=== PATIENT | female | born 1940 | race Caucasian/White ===

== ENCOUNTER → 2023-11-28 08:21 | Outpatient (REF) | payer MEDICARE, BC, SELFPAY ==
[2023-11-28 09:14] LABS: % Basophils 0.8 % (0-2); % Eosinophils 2.4 % (0-6); % Immature Granulocytes 0.2 % (0-0.5); % Lymphocytes 33.3 % (20.5-51.1); % Neutrophils 53.3 % (42.2-75.2); Absolute Eosinophils 0.1 10^3/uL (0-0.7); Absolute Lymphocytes 1.6 10^3/uL (1.2-3.4); Absolute Monocytes 0.5 10^3/uL (0.1-0.6); Absolute Neutrophils 2.6 10^3/uL (1.4-6.5); Hematocrit 40.6 % (37.0-47.0); Hemoglobin 13.1 g/dL (12.0-16.0); Mean Corp Hgb Conc. 32.3 g/dL (33.0-37.0); Mean Corpuscular Hgb 29.6 pg (27.0-31.0); Mean Corpuscular Volume 91.9 fL (81.0-99.0); Nucleated Red Blood Cells % 0 %; Red Blood Cell Count 4.42 10^6/uL (4.20-5.40); White Blood Cell Count 4.9 10^3/uL (4.8-10.8)
[2023-11-28 09:16] LABS: Urine Albumin Trace (Neg - Trace); Urine Bilirubin Negative (Negative); Urine Character Slightly Cloudy (Clear); Urine Color Yellow; Urine Glucose Negative (Negative); Urine Ketone Negative (Negative); Urine Leukocyte 2+ (Negative); Urine Nitrite Negative (Negative); Urine Occult Blood 1+ (Negative); Urine Specific Gravity 1.015 (<1.030); Urine Urobilinogen Negative (Neg - 1+)
[2023-11-28 09:33] LABS: ALT (SGPT) 42 U/L (0-35); AST (SGOT) 50 U/L (14-36); Albumin 4.2 g/dl (3.5-5.0); Alkaline Phosphatase 61 U/L (38-126); Blood Urea Nitrogen 22 mg/dl (7-17); Calcium 9.1 mg/dl (8.4-10.2); Carbon Dioxide 26 mmol/L (22-30); Chloride 105 mmol/L (98-107); Glucose 101 mg/dl (70-99); HDL Cholesterol 52 mg/dl; LDL Cholesterol, Calculated 23 mg/dl; Potassium 3.8 mmol/L (3.5-5.1); Sodium 140 mmol/L (135-145); Total Bilirubin 0.6 mg/dl (0.2-1.3); Total Cholesterol 91 mg/dl (50-199); Total Protein 6.5 g/dl (6.3-8.2); Triglyceride 83 mg/dl (10-149); Very Low Density Lipoprotein 16 mg/dl (0-30); eGFR > 60.00
[2023-11-28 10:02] LABS: Mean Platelet Volume 11.9 fL (7.4-10.4); Platelet Count 124 10^3/uL (130-400)
[2023-11-28 10:32] LABS: Urine Amorphous Seen; Urine Mucus Moderate; Urine Squamous Cell >30 /LPF (Few); Urine Urothelial Cell 21-25 /LPF (FEW)
[2023-11-28 10:34] LABS: Urine Bacteria Many (Negative)
[2023-11-28 10:36] LABS: Urine White Cell 70-80 /HPF (0-5)
== END ==
LOC: REG 08:21
PROVIDERS: ATTENDING PHYSICIAN Internal Medicine Rheumatology; FAMILY PHYSICIAN Internal Medicine; REFERRING PHYSICIAN Internal Medicine Cardiovascular Disease
DX: M19.071 Primary osteoarthritis, right ankle and foot (principal); I51.9 Heart disease, unspecified; M25.511 Pain in right shoulder; M81.0 Age-related osteoporosis without current pathological fracture; S63.10 Unspecified subluxation and dislocation of thumb; Z51.81 Encounter for therapeutic drug level monitoring; I25.10 Atherosclerotic heart disease of native coronary artery without angina pectoris; E78.5 Hyperlipidemia, unspecified
CPT/HCPCS: 36415; 73630; 80053; 80061; 81003; 81015; 85025

== ENCOUNTER → 2024-02-14 06:40 | Day surgery (SDC) | payer MEDICARE, BC, SELFPAY | LOC: GI 06:40 | PROVIDERS: ATTENDING PHYSICIAN Internal Medicine Gastroenterology | PROC: 0DBK8ZX Excision of Ascending Colon, Via Natural or Artificial Opening Endoscopic, Diagnostic (ICD-10-PCS; 2024-02-14) | PROC: 0DBM8ZX Excision of Descending Colon, Via Natural or Artificial Opening Endoscopic, Diagnostic (ICD-10-PCS; 2024-02-14) | DX: Z12.11 Encounter for screening for malignant neoplasm of colon (principal); Z86.0100 Personal history of colon polyps, unspecified; D12.4 Benign neoplasm of descending colon; D12.2 Benign neoplasm of ascending colon; K57.30 Diverticulosis of large intestine without perforation or abscess without bleeding; K64.8 Other hemorrhoids | CPT/HCPCS: 45380; 88305 ==

== ENCOUNTER → 2024-02-26 13:16 | Outpatient (REF) | payer MEDICARE, BC, SELFPAY | LOC: WDC 13:16 | PROVIDERS: ATTENDING PHYSICIAN Obstetrics & Gynecology; FAMILY PHYSICIAN Internal Medicine | DX: Z12.31 Encounter for screening mammogram for malignant neoplasm of breast (principal) | CPT/HCPCS: 77063; 77067 ==

== ENCOUNTER → 2024-03-13 12:00 | Outpatient (REF) | payer MEDICARE, BC, SELFPAY | LOC: UCDH 12:00 | PROVIDERS: ATTENDING PHYSICIAN Physician Assistant Medical; FAMILY PHYSICIAN Internal Medicine | DX: M25.532 Pain in left wrist (principal) | CPT/HCPCS: 73110 ==

== ENCOUNTER → 2024-05-16 09:15 | Outpatient (REF) | payer OTHER, SELFPAY ==
[2024-05-16 10:59] LABS: % Basophils 0.8 % (0-2); % Eosinophils 1.3 % (0-6); % Lymphocytes 36.9 % (20.5-51.1); Absolute Eosinophils 0.1 10^3/uL (0-0.7); Absolute Lymphocytes 1.4 10^3/uL (1.2-3.4); Absolute Monocytes 0.4 10^3/uL (0.1-0.6); Absolute Neutrophils 1.9 10^3/uL (1.4-6.5); Hemoglobin 12.1 g/dL (12.0-16.0); Mean Corp Hgb Conc. 31.8 g/dL (33.0-37.0); Mean Corpuscular Hgb 28.9 pg (27.0-31.0); Mean Corpuscular Volume 90.7 fL (81.0-99.0); Mean Platelet Volume 12.7 fL (7.4-10.4); Nucleated Red Blood Cells % 0 %; Platelet Count 116 10^3/uL (130-400); Red Blood Cell Count 4.19 10^6/uL (4.20-5.40); Red Cell Dist. Width 14.7 % (11.5-14.5); White Blood Cell Count 3.8 10^3/uL (4.8-10.8)
[2024-05-16 11:13] LABS: ALT (SGPT) 46 U/L (0-35); AST (SGOT) 48 U/L (14-36); Albumin 4.6 g/dl (3.5-5.0); Alkaline Phosphatase 68 U/L (38-126); Blood Urea Nitrogen 18 mg/dl (7-17); Calcium 9.2 mg/dl (8.4-10.2); Carbon Dioxide 28 mmol/L (22-30); Chloride 102 mmol/L (98-107); Glucose 99 mg/dl (70-99); Potassium 3.7 mmol/L (3.5-5.1); Sodium 141 mmol/L (135-145); Total Bilirubin 0.8 mg/dl (0.2-1.3); Total Protein 6.7 g/dl (6.3-8.2); eGFR > 60.00
[2024-05-16 12:04] LABS: Free T4 1.19 ng/dl (0.78-2.19)
[2024-05-16 12:18] LABS: TSH 1.12 uIU/ml (0.47-4.68)
== END ==
LOC: RCS 09:15
PROVIDERS: ATTENDING PHYSICIAN Internal Medicine; FAMILY PHYSICIAN Internal Medicine Cardiovascular Disease
DX: I25.10 Atherosclerotic heart disease of native coronary artery without angina pectoris (principal); I35.1 Nonrheumatic aortic (valve) insufficiency; R63.4 Abnormal weight loss; I48.0 Paroxysmal atrial fibrillation
CPT/HCPCS: 36415; 80053; 84439; 84443; 85025; 93306

== ENCOUNTER → 2024-05-27 06:55 | Outpatient (REF) | payer OTHER, SELFPAY ==
[2024-05-27 09:18] LABS: Blood Urea Nitrogen 23 mg/dl (7-17); Calcium 9.2 mg/dl (8.4-10.2); Carbon Dioxide 29 mmol/L (22-30); Chloride 102 mmol/L (98-107); Glucose 99 mg/dl (70-99); Potassium 3.5 mmol/L (3.5-5.1); Sodium 142 mmol/L (135-145); eGFR > 60.00
[2024-05-27 09:54] LABS: NT-proBNP 820 pg/ml
== END ==
LOC: RAD 06:55
PROVIDERS: ATTENDING PHYSICIAN Internal Medicine Cardiovascular Disease; FAMILY PHYSICIAN Internal Medicine
DX: I71.40 Abdominal aortic aneurysm, without rupture, unspecified (principal)
CPT/HCPCS: 36415; 76770; 80048; 83880

== ENCOUNTER → 2024-06-20 07:54 | Outpatient (REF) | payer OTHER, SELFPAY ==
[2024-06-20 09:32] LABS: HDL Cholesterol 50 mg/dl; LDL Cholesterol, Calculated 15 mg/dl; Total Cholesterol 77 mg/dl (50-199); Triglyceride 60 mg/dl (10-149); Very Low Density Lipoprotein 12 mg/dl (0-30)
== END ==
LOC: REG 07:54
PROVIDERS: ATTENDING PHYSICIAN Internal Medicine Cardiovascular Disease; FAMILY PHYSICIAN Internal Medicine
DX: E78.2 Mixed hyperlipidemia (principal)
CPT/HCPCS: 36415; 80061

== ENCOUNTER 2024-06-28 07:02 | Emergency (ER) | payer OTHER, SELFPAY ==
[2024-06-28] VITALS (13 sets, daily range): BP systolic 92–158; BP diastolic 39–87
--- NOTE | 2024-06-28 08:01 | ED.GENMED ---
History of Present Illness
General
Chief Complaint: Cardiac Symptoms
Source: patient
Time Seen by Provider: 06/28/24 07:32
History of Present Illness
History of Present Illness:
84-year-old female presents to the emergency room complaining of palpitations and rapid heart rate. She has a history of paroxysmal A-fib and was suspicious she was back in it. She also received a alert from her Apple Watch that she may be in
A-fib. She has mild chest pain but no shortness of breath. Patient is not anticoagulated which she has discussed with cardiology.
Phy Exam
Physical Exam
Physical Exam:
General: Awake, Alert, Oriented X3. No acute distress.
Vitals: unremarkable
Head: Atraumatic
Eyes: Pupils equal, EOMI
Throat: Airway intact, no exudates
Neck: Trachea midline
Lungs: Clear and equal b/l
Heart: Tachycardic, irregular rate, no murmurs
Abd: Soft, Nontender, No pulsatile mass
Back: No CVA tenderness to percussion
Neuro: Nonfocal
Skin: Warm, dry, no rash
Extremities: pulses equal b/l, no edema
Course
Orders/Labs/Results
Orders:
Orders
06/28/24 07:05
Electrocardiogram (*1) Urgent
Reason for Study: Atrial Fibrillation
EKG- Treatment ONCE
06/28/24 08:01
Diltiazem 125 mg/125 ml Nss [Cardizem] 125 mg in 125 ml IV NOW
Initial dose in mg/hr, then titrate:: 5
Titrate to keep:: Heart rate 80-100 bpm
Titrate by mg/hr:: 5 mg/hr
Frequency of titrations (minutes):: 15
Maximum dose in mg/hr:: 15
Diltiazem HCl [Cardizem] 10 mg IV NOW STA
06/28/24 09:22
Basic Metabolic Panel Urgent
Complete Blood Count/With Diff Urgent
Troponin I Urgent
06/28/24 09:39
Electrocardiogram (*1) Urgent
Reason for Study: Atrial Fibrillation
EKG- Treatment ONCE
Abnormal Lab Results
06/28/24
09:22
MCHC 32.9 L g/dL
(33.0-37.0)
Plt Count 112 L 10^3/uL
(130-400)
MPV 12.3 H fL
(7.4-10.4)
Monocytes % 9.6 H %
(1.7-9.3)
BUN 20 H mg/dl
(7-17)
Glucose 101 H mg/dl
(70-99)
06/28/24 09:22
06/28/24 09:22
Vital Signs
Initial and Last Documented VS:
Initial Vital Signs
Temp Pulse Resp Pulse Ox
98.2 F 130 16 98
06/28/24 07:13 06/28/24 07:13 06/28/24 07:13 06/28/24 07:13
Last Documented Vital Signs
Temp Pulse Resp BP Pulse Ox
98.2 F 58 14 109/53 96
06/28/24 07:13 06/28/24 11:05 06/28/24 11:05 06/28/24 11:05 06/28/24 11:05
MDM/Problems Addressed
Differential Diagnosis Includes:
Atrial fibrillation with rapid ventricular response, frequent PACs, sinus tachycardia
MDM/Problems Addressed:
Patient presents with sensation her heart rate was irregular rapid. She noted she was in atrial fibrillation on her Apple Watch. Patient cardioverted spontaneously after her rate was controlled with Cardizem. She is maintained sinus rhythm.
Discussed starting Eliquis with the patient. 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
*Pulse Oximetry
Patient hypoxic: no
*EKG
Interpreted by ED Provider?: Yes
Interpretation: abnormal
Heart Rate: 108
Rate: tachycardiac
Rhythm: a-fib
[place]: normal axis
Interval: normal interval
QRS Pattern: normal QRS
Ischemia: non-specific ST changes
*Combination Machine Tool Setter Interpretation
Rate: tachycardiac
Interpretation: abnormal
Heart Rate: 108
Rhythm: a-fib
*Critical Care Note
Total Time (30-74mins, 75-104mins- exclusive of procedures): 32 min
comment:
Critical care statement: A total of 32 minutes of critical care time was provided for this patient. This includes management of unstable vital signs, evaluation of the patient at bedside, reviewing the patient�s pertinent medical records, discussion
with consultants, review of old EKGs and review of pertinent medical records. This time with separate from time utilized to perform the aforementioned documented procedures
ED Attending Note
-
Portions of this chart may have been created with voice recognition software.� Occasional wrong word or��sound alike� substitutions may have occurred due to the inherent limitations of voice recognition software.
Discharge Plan
Departure
Patient Disposition: Home (Routine Discharge)
Date of Disposition: 06/28/24
Time of Disposition: 11:01
Patient with high blood pressure during this ER visit?: No
Condition: Good
Discharge Problem:
Paroxysmal A-fib
Instructions: Atrial fibrillation - Discharge instructions, Chest Pain DCA Follow Up
Prescriptions:
No Action
furosemide [Lasix] 40 mg Tablet
40 mg PO BID
lisinopril 10 mg Tablet
10 mg PO DAILY
metoprolol tartrate 50 mg Tablet
50 mg PO BID
rosuvastatin [Crestor] 20 mg Tablet
10 mg PO QPM
Repatha SureClick 140 mg/mL Pen Injector
140 mg SC Q2W
cetirizine [Zyrtec] 10 mg Tablet
10 mg PO DAILY
cyanocobalamin (vitamin B-12) 1,000 mcg Tablet
1,000 mcg PO NOON
aspirin 81 mg Tablet,Delayed Release (Dr/Ec)
81 mg PO NOON
zinc sulfate 50 mg zinc (220 mg) Tablet
50 mg PO NOON
calcium carbonate [Calcium 600] 600 mg calcium (1,500 mg) Tablet
600 mg PO DAILY
ascorbic acid (vitamin C) [Vitamin C] 500 mg Tablet
500 mg PO NOON
cholecalciferol (vitamin D3) [Vitamin D3] 25 mcg (1,000 unit) Tablet
25 mcg PO NOON
Prolia 60 mg/mL Syringe
60 mg SC [id number]
turmeric 400 mg Capsule
1,200 mg PO BID
Referrals:
Kamilla Barreto MD [Active] -
Len Salazar MD [Family Provider] -
Activity Restrictions/Additional Instructions:
Discuss starting Eliquis with Dr. Barreto.
Interventions
Interventions:
*Risk Screen - Suicide Last Done: 06/28/24 07:13
*General Assessment Last Done: 06/28/24 08:33
*Neglect/Abuse Screening Last Done: 06/28/24 07:13
*ED- Fall Risk Assessment Last Done: 06/28/24 11:13
*ED COVID-19 Vaccine History Last Done: 06/28/24 11:11
*Nursing Disposition Last Done: 06/28/24 11:13
ED- Pulmonary Assessment Last Done: 06/28/24 08:33
ED- Cardiac Assessment Last Done: 06/28/24 08:33
Discharge Date and Time
Discharge Date/Time: 06/28/24 11:14
Print Language: DANISH
[2024-06-28] MEDS: CARDIZEM 10 MG IV (08:29)
[2024-06-28] MEDS: CARDIZEM 125 IV (08:30)
[2024-06-28 09:29] LABS: % Basophils 0.4 % (0-2); % Immature Granulocytes 0.2 % (0-0.5); % Monocytes 9.6 % (1.7-9.3); % Neutrophils 63.8 % (42.2-75.2); Absolute Eosinophils 0.1 10^3/uL (0-0.7); Absolute Lymphocytes 1.3 10^3/uL (1.2-3.4); Absolute Monocytes 0.5 10^3/uL (0.1-0.6); Absolute Neutrophils 3.2 10^3/uL (1.4-6.5); Hematocrit 38.3 % (37.0-47.0); Hemoglobin 12.6 g/dL (12.0-16.0); Mean Corp Hgb Conc. 32.9 g/dL (33.0-37.0); Mean Corpuscular Hgb 29.6 pg (27.0-31.0); Mean Corpuscular Volume 90.1 fL (81.0-99.0); Mean Platelet Volume 12.3 fL (7.4-10.4); Nucleated Red Blood Cells % 0 %; Platelet Count 112 10^3/uL (130-400); Red Blood Cell Count 4.25 10^6/uL (4.20-5.40); Red Cell Dist. Width 14.4 % (11.5-14.5)
[2024-06-28 09:42] LABS: Blood Urea Nitrogen 20 mg/dl (7-17); Calcium 8.7 mg/dl (8.4-10.2); Carbon Dioxide 29 mmol/L (22-30); Chloride 105 mmol/L (98-107); Glucose 101 mg/dl (70-99); Potassium 3.5 mmol/L (3.5-5.1); Sodium 142 mmol/L (135-145); eGFR > 60.00
== END 2024-06-28 11:14 | disposition home or self-care (01) ==
LOC: EMR 07:02
PROVIDERS: EMERGENCY PHYSICIAN Emergency Medicine; FAMILY PHYSICIAN Internal Medicine
DX: I48.0 Paroxysmal atrial fibrillation (principal); R07.9 Chest pain, unspecified
CPT/HCPCS: 96374; 99291; 80048; 84484; 85025; 93005

== ENCOUNTER → 2024-07-03 09:05 | Outpatient (REF) | payer OTHER, SELFPAY ==
[2024-07-03 10:20] LABS: % Basophils 0.4 % (0-2); % Eosinophils 1.5 % (0-6); % Immature Granulocytes 0.2 % (0-0.5); % Lymphocytes 38.1 % (20.5-51.1); % Monocytes 11.8 % (1.7-9.3); Absolute Eosinophils 0.1 10^3/uL (0-0.7); Absolute Lymphocytes 1.8 10^3/uL (1.2-3.4); Absolute Monocytes 0.6 10^3/uL (0.1-0.6); Absolute Neutrophils 2.2 10^3/uL (1.4-6.5); Hematocrit 38.7 % (37.0-47.0); Hemoglobin 12.3 g/dL (12.0-16.0); Mean Corp Hgb Conc. 31.8 g/dL (33.0-37.0); Mean Corpuscular Hgb 28.9 pg (27.0-31.0); Mean Corpuscular Volume 91.1 fL (81.0-99.0); Mean Platelet Volume 12.2 fL (7.4-10.4); Nucleated Red Blood Cells % 0 %; Platelet Count 118 10^3/uL (130-400); Red Blood Cell Count 4.25 10^6/uL (4.20-5.40); Red Cell Dist. Width 14.5 % (11.5-14.5); White Blood Cell Count 4.7 10^3/uL (4.8-10.8)
[2024-07-03 11:02] LABS: ALT (SGPT) 57 U/L (0-35); AST (SGOT) 54 U/L (14-36); Albumin 4.4 g/dl (3.5-5.0); Alkaline Phosphatase 71 U/L (38-126); Blood Urea Nitrogen 17 mg/dl (7-17); Calcium 9.3 mg/dl (8.4-10.2); Carbon Dioxide 30 mmol/L (22-30); Chloride 104 mmol/L (98-107); Glucose 99 mg/dl (70-99); Potassium 3.3 mmol/L (3.5-5.1); Sodium 146 mmol/L (135-145); Total Bilirubin 0.7 mg/dl (0.2-1.3); Total Protein 6.6 g/dl (6.3-8.2); eGFR > 60.00
== END ==
LOC: REG 09:05
PROVIDERS: ATTENDING PHYSICIAN Physician Assistant; FAMILY PHYSICIAN Internal Medicine
DX: M81.0 Age-related osteoporosis without current pathological fracture (principal); Z51.81 Encounter for therapeutic drug level monitoring; D70.9 Neutropenia, unspecified
CPT/HCPCS: 36415; 80053; 85025

== ENCOUNTER 2024-07-15 08:22 | Day surgery (SDC) | payer OTHER, SELFPAY | END 2024-07-15 10:17 | LOC: CATH 08:22 | PROVIDERS: ATTENDING PHYSICIAN Student in an Organized Health Care Education/Training Program; FAMILY PHYSICIAN Internal Medicine; OTHER PHYSICIAN Internal Medicine Cardiovascular Disease | DX: I48.0 Paroxysmal atrial fibrillation (principal); I25.10 Atherosclerotic heart disease of native coronary artery without angina pectoris; I10 Essential (primary) hypertension; E78.2 Mixed hyperlipidemia; E11.9 Type 2 diabetes mellitus without complications; Z95.1 Presence of aortocoronary bypass graft; Z79.01 Long term (current) use of anticoagulants | CPT/HCPCS: 92960; 93005 ==

== ENCOUNTER 2024-08-26 06:56 | Day surgery (SDC) | payer OTHER, SELFPAY | END 2024-08-26 09:06 | disposition home or self-care (01) | LOC: CATH 06:56 | PROVIDERS: ATTENDING PHYSICIAN Student in an Organized Health Care Education/Training Program; FAMILY PHYSICIAN Internal Medicine; OTHER PHYSICIAN Internal Medicine Cardiovascular Disease | DX: I08.3 Combined rheumatic disorders of mitral, aortic and tricuspid valves (principal); I48.0 Paroxysmal atrial fibrillation; I11.0 Hypertensive heart disease with heart failure; I50.9 Heart failure, unspecified; E78.5 Hyperlipidemia, unspecified; I25.10 Atherosclerotic heart disease of native coronary artery without angina pectoris; Z95.1 Presence of aortocoronary bypass graft; Z85.828 Personal history of other malignant neoplasm of skin; Z79.01 Long term (current) use of anticoagulants | CPT/HCPCS: 93312; 93320; 93325 ==

== ENCOUNTER 2024-08-29 05:51 | Day surgery (SDC) | payer OTHER, SELFPAY ==
[2024-08-20 10:57] VITALS: BMI 23.8
[2024-08-20 12:04] LABS: % Basophils 0.7 % (0-2); % Immature Granulocytes 0.2 % (0-0.5); % Lymphocytes 24.3 % (20.5-51.1); % Monocytes 9.4 % (1.7-9.3); % Neutrophils 64.4 % (42.2-75.2); Absolute Eosinophils 0.1 10^3/uL (0-0.7); Absolute Lymphocytes 1.5 10^3/uL (1.2-3.4); Absolute Monocytes 0.6 10^3/uL (0.1-0.6); Absolute Neutrophils 3.9 10^3/uL (1.4-6.5); Hematocrit 34.4 % (37.0-47.0); Hemoglobin 10.8 g/dL (12.0-16.0); Mean Corp Hgb Conc. 31.4 g/dL (33.0-37.0); Mean Corpuscular Hgb 28.7 pg (27.0-31.0); Mean Corpuscular Volume 91.5 fL (81.0-99.0); Mean Platelet Volume 11.7 fL (7.4-10.4); Nucleated Red Blood Cells % 0 %; Platelet Count 146 10^3/uL (130-400); Red Blood Cell Count 3.76 10^6/uL (4.20-5.40); Red Cell Dist. Width 16.3 % (11.5-14.5); White Blood Cell Count 6.1 10^3/uL (4.8-10.8)
[2024-08-20 12:13] LABS: ALT (SGPT) 50 U/L (0-35); AST (SGOT) 43 U/L (14-36); Albumin 3.8 g/dl (3.5-5.0); Alkaline Phosphatase 78 U/L (38-126); Blood Urea Nitrogen 19 mg/dl (7-17); Calcium 8.1 mg/dl (8.4-10.2); Carbon Dioxide 31 mmol/L (22-30); Chloride 111 mmol/L (98-107); Estimated Creatinine Clearance 36 ml/min; Glucose 106 mg/dl (70-99); INR 1.28; PT 16.2 Sec (11.4-14.6); Potassium 3.6 mmol/L (3.5-5.1); Sodium 146 mmol/L (135-145); Total Bilirubin 0.8 mg/dl (0.2-1.3); Total Protein 6.2 g/dl (6.3-8.2); eGFR > 60.00
[2024-08-29] VITALS (13 sets, daily range): BP systolic 103–159; BP diastolic 43–78; BMI 22.8
[2024-08-29] MEDS: TYLENOL 1000 MG PO (07:07)
--- NOTE | 2024-08-29 07:54 | ITS.CL.ABL ---
Jazz Musician - Ablation
Ablation
Procedure Report:
ELECTROPHYSIOLOGIC STUDY AND POSSIBLE ABLATION
DATE: 08/29/24
Primary Care Provider: Len Salazar
Primary Yarn Winder: Dr Kamilla Barreto
INDICATION:
Symptomatic Atrial Fibrillation.
Paroxysmal
HISTORY: See H and P.
Symptomatic AF, poorly controlled with attempted medical therapy.
She has been referred from Dr. Kamilla Barreto regarding recurrent symptomatic atrial fibrillation.
She is highly symptomatic, most recently was seen at the emergency department at [facility] on June 28, 2024 where she spontaneously converted back to sinus rhythm.� She recurred shortly thereafter on July 10, 2024.� Highly symptomatic.� Symptoms
include fatigue as well as worsening dizziness. She was seen in the office setting July 11, 2024 where amiodarone was initiated and cardioversion was scheduled for July 15, 2024, successfully restoring sinus rhythm.� At this office visit lisinopril
was reduced from 10 mg daily to 2.5 mg daily given mild hypotension in the presence of atrial fibrillation. In addition metoprolol to tartrate was increased to 75 twice daily
Her cardiovascular history is also complicated by HFpEF (heart failure with improved ejection fraction as previously had reduced ejection fraction).
Her most recent echocardiogram is from May 16, 2024 showing LVEF of 60%.
Given that she is highly symptomatic and that she strongly prefers to avoid ongoing amiodarone therapy, she presents today for EP study and ablation.
Medical history also includes coronary artery disease with prior myocardial infarction and prior coronary artery bypass grafting surgery.
HAS-BLED: 2
Age
Abnormal Liver Function
CHADSVASc: 5
HFimpEF NYHA Class 2, LVEF 60%
Age
Vascular Dz: prior CA
F Gender
PRESENTING RHYTHM: SR
HISTORY: See H and P.
Symptomatic AF, poorly controlled with attempted medical therapy.
ANTIARRHYTHMIC DRUG: amiodarone
ANTICOAGULATION: Apixaban 5 mg twice daily
'TIME-OUT': called and confirmed.
SEDATION/ANESTHESIA: provided via the anesthesia department using general anesthesia.
PROCEDURE:
Ultrasound Guidance with real-time visualization of needle insertion and vessel patency performed by nd for femoral venous Vascular Access.
Under real-time US guidance, the needle was advanced with negative pressure into the vein. The needle was seen entering the vessel lumen with a good return of dark red flow, the syringe was removed, non-pulsatile, dark red blood low was noted and
the wire was passed without difficulty, then the needle was removed. US confirmed the wire was in the vein, not going into an artery,
Images were taken and saved for the patient's permanent record. Imaging findings typical femoral venous anatomy. Direct visualization of needle puncture into the femoral vein was observed and recorded.
A decapolar CS catheter was placed within the CS for mapping and pacing.
The intracardiac ultrasound catheter was positioned in the RA for continuous intracardiac ultrasound imaging.
Heparin bolus and infusion to target ACT at 300 -350 seconds was administered. Transseptal puncture was performed. This entailed advancing a sheath with dilator into the superior vena cava and withdrawing both (monitoring intracardiac ultrasound,
fluoroscopy and tip pressure) with the tip oriented toward the atrial septum. The fossa ovalis was engaged (indicated by sudden displacement of the sheath tip as well as tenting of the fossa seen on intracardiac ultrasound).
Transseptal puncture was performed. Left atrial catheter position was confirmed by echocardiographic imaging, pressure monitoring (LA mean pressure 18 mm Hg) and fluoroscopy. The sheath was advanced over the dilator and positioned in the left
atrium.
The [employer] multipolar mapping/ablation Sphere-9 catheter was positioned through the transseptal sheath for high density mapping.
Geometry and voltage mapping was performed using the [employer] mapping system for three-dimensional electroanatomical mapping.
Catheter positioning was guided and confirmed using both I.C.E. and fluoroscopy.
Mapping demonstrates marked fractionation and patches of low voltage throughout the majority of the left atrium.
Ablation strategy included PVI as well as mapping and ablation of extra PV contributors to atrial fibrillation:
Pulmonary venous isolation was performed by delivering pulsed electric field energy at the ostia of the left superior and left inferior pulmonary veins as well as the right superior and right inferior pulmonary veins resulting in electrical
isolation of the pulmonary veins.
Additional energy applications/additional ablation sets targeted extra PV contributors to atrial fibrillation.
Targets were identified with electroanatomical voltage mapping finding areas of low voltage and complex fractionated electrograms. These areas can be sites for the formation of rotors which can drive and maintain atrial fibrillation. These areas are
known to be significant contributors to initiation and perpetuation of atrial fibrillation.
Targets for additional PFA ablation included:
LA posterior wall
After ablation of the posterior wall, target remained at the anterior roof and the inferior/ floor of the LA
LA anterior inferior floor line as well as an area of marked fractionation between the inferior posterior/floor of the left atrium and the posterior mitral valve annulus where there were areas of near continuous activation
A second tachycardia is identified. During mapping sinus rhythm changed to an atrial tachycardia. Tachycardia cycle length 380 ms with some oscillation.
High density electroanatomical mapping via the [employer] system identified likely atrial tachycardia arising just anterior to the right superior pulmonary vein.
Ablation at this area terminated the atrial tachycardia.
At the completion of ablation at the PVs, the targeted extra PV sites and the focal LA tachycardia, post ablation mapping finds entrance and exit block at the pulmonary veins and at the posterior wall of the left atrium and floor of the left atrium.
Programmed electrostimulation including burst atrial pacing as well as delivery of atrial decremental extrastimuli down to atrial ERP failed to induce any sustained arrhythmias.
I.C.E. :
Pre-Ablation Post-Ablation
LVEF: 55 % 55 %
WMA: none none
Pericardial effusion: none none
COMPLICATIONS:
None
SUMMARY:
- Mapping and ablation to isolate the PVs resulting in electrical isolation of the pulmonary veins
- Additional AF ablation sets X 2 after PVI (LA posterior wall, Inf/floor of the LA posterior wall) resulting in elimination of the targeted extra PV contributors to atrial fibrillation (Post wall, Inf LA floor)
- Mapping and ablation of second tachycardia (Focal LA tachycardia) terminating the AT and rendering it noninducible with programmed electrical stimulation.
- 3-D Electroanatomical Mapping
- Intracardiac Ultrasound
- Ultrasound guidance for vascular access
Post ablation, I discussed today's findings and results with the patient's daughter, Chiara.
RECOMMENDATIONS:
- Observe in monitored bed.
- Maintain oral anticoagulation.
- Discontinue amiodarone
- Office visit with me is scheduled for January 03, 2025.
- Continue cardiovascular care with Dr Kamilla Barreto
Copy to:
Len Salazar
Dr Kamilla Barreto
[2024-08-29 09:07] LABS: ACT-LR - POC 294 Seconds (116-155)
[2024-08-29 09:22] LABS: ACT-LR - POC 340 Seconds (116-155)
[2024-08-29 09:43] LABS: ACT-LR - POC 380 Seconds (116-155)
[2024-08-29] MEDS: ANESTHETIC LOZENGE 1 LOZENGE PO (10:40)
--- NOTE | 2024-08-29 14:39 | W.PN.UPDATE ---
Update Note
Progress Note Update
84 yo WF s/p PVI (same day). She denies cp, sob, pily diet, voiding, amb w/o dizziness, R fem site c/d/i no HT, soft, EKG SR with new RBBB and mild STD which resolved prior to d/c. She will resume Eliquis tonight. Activity restrictions reviewed. She
will f/u Dr. Gomes in 3 mo. She is for d/c home after 230pm.
== END 2024-08-29 14:30 | disposition home or self-care (01) ==
LOC: CATH 05:51
PROVIDERS: ATTENDING PHYSICIAN Internal Medicine Cardiovascular Disease; FAMILY PHYSICIAN Internal Medicine; OTHER PHYSICIAN Internal Medicine Cardiovascular Disease
DX: I48.0 Paroxysmal atrial fibrillation (principal); E04.2 Nontoxic multinodular goiter; E78.5 Hyperlipidemia, unspecified; E83.51 Hypocalcemia; I11.0 Hypertensive heart disease with heart failure; I25.10 Atherosclerotic heart disease of native coronary artery without angina pectoris; I25.2 Old myocardial infarction; I25.5 Ischemic cardiomyopathy; I45.10 Unspecified right bundle-branch block; I49.1 Atrial premature depolarization; I50.9 Heart failure, unspecified; J45.909 Unspecified asthma, uncomplicated; M19.90 Unspecified osteoarthritis, unspecified site; M85.80 Other specified disorders of bone density and structure, unspecified site; Z79.01 Long term (current) use of anticoagulants; Z79.899 Other long term (current) drug therapy; Z85.828 Personal history of other malignant neoplasm of skin; Z86.0100 Personal history of colon polyps, unspecified; Z87.19 Personal history of other diseases of the digestive system; Z95.1 Presence of aortocoronary bypass graft
CPT/HCPCS: C1894; C1733; C1769; C1766; C1730; C1892; 36415; 75572; 80053; 83735; 85025; 85347; 85610; 86850; 86900; 86901; 93005; 93655; 93656; 93657; Q9967

== ENCOUNTER 2024-09-03 14:06 | Emergency (ER) | payer OTHER, SELFPAY ==
[2024-09-03 14:07] VITALS: BP 165/64
--- NOTE | 2024-09-03 15:20 | EDRN ---
Dr. Patten in room w/ pt at this time.
--- NOTE | 2024-09-03 15:54 | EDRN ---
Dr. Patten in room w/pt at this time.
--- NOTE | 2024-09-03 16:08 | ED.GENMED ---
History of Present Illness
General
Chief Complaint: Fall
Source: patient
Exam Limitations: none
Time Seen by Provider: 09/03/24 15:25
Nursing documentation reviewed up to this point in time: agreed with
History of Present Illness
History of Present Illness:
84-year-old female with a past medical history of hypertension, hyperlipidemia, CAD, atrial fibrillation on Eliquis who presents to the emergency department for evaluation after a fall. Patient tripped on a step in her house and fell forward. She
struck the left side of her head. Did not lose consciousness. Sustained minor abrasion and contusion to the left forehead. She landed on her left knee initially had some soreness but was able to stand up and weight-bear and denies any knee pain
at present. She denies any other injuries including specifically denying neck pain, back pain, rib pain. Of note patient had recent cardiac ablation with Dr. Barreto on 08/29/2024.
Review of Systems
Review of Systems
All Other Systems: ROS reviewed and negative except as documented in HPI and ROS
Cardiac: Denies chest pain
ABD/GI: Denies abdominal pain or nausea
Musculoskeletal: Denies joint pain, neck pain or back pain
Neurological: Denies headache
Phy Exam
Physical Exam
Physical Exam:
General: Awake, alert, oriented x3; no acute distress
Head: Normocephalic, contusion and minor abrasion to the left forehead
Eyes: Conjunctiva normal, pupils equal round reactive to light bilaterally
Throat: Airway intact, handling secretions, tongue atraumatic
Neck: Trachea midline, no cervical spine tenderness, full range of motion in the cervical spine without pain
Back: No signs of trauma the back or flank and no tenderness in the thoracic or lumbar spine
Lungs: Breathing comfortably no distress
Heart: Regular rate
Abd: Soft, non distended, nontender
Neuro: No gross deficits
Skin: Old bruises on the arms from prior IVs; minor abrasion to the left forehead
Extremities: Bilateral lower extremity edema chronic; she has no bruising or swelling in the left knee, full range of motion of the left knee without pain
Scores
Heart Failure Risk
Heart Failure Risk Score: Not Applicable
Heart Score for Chest Pain Patients
STEMI patient?: Not applicable
Withdrawal Assessment of Alcohol
Withdrawal Assessment Completed?: Not applicable
Course
Orders/Labs/Results
Orders:
Orders
09/03/24 14:11
CT Head W/o Iv Contrast Urgent
Comment:
Reason For Exam: head strike on thinners
09/03/24 15:26
Tetanus/Diphth/Acelpertussis [Adacel] 0.5 ml IM .ONCE ONE
Vital Signs
Initial and Last Documented VS:
Initial Vital Signs
Temp Pulse Resp BP Pulse Ox
36.5 C 68 20 165/64 98
09/03/24 14:07 09/03/24 14:07 09/03/24 14:07 09/03/24 14:07 09/03/24 14:07
Last Documented Vital Signs
Temp Pulse Resp BP Pulse Ox
36.5 C 68 20 165/64 98
09/03/24 14:07 09/03/24 14:07 09/03/24 14:07 09/03/24 14:07 09/03/24 14:07
MDM/Problems Addressed
Differential Diagnosis Includes:
Traumatic head injury: Subdural, subarachnoid, concussion, forehead contusion
MDM/Problems Addressed:
84-year-old female who is on Eliquis presents after a trip and fall with head strike. She also landed on her left knee although after some initial soreness she no longer complains of any pain in the knee. Hypertensive otherwise normal vitals.
Physical exam as above. She had a CT head which shows no acute abnormalities. Her exam of her left knee is benign. She has no neck pain, full range of motion in the cervical spine�no indication for emergent cervical spine imaging. Stable for
discharge to follow-up with PCP for blood pressure recheck.
Chronic conditions affecting care:
A-fib on Eliquis complicates fall
Acute Exacerbation and/or Progression of Chronic Illness:
Acutely hypertensive without signs or symptoms of hypertensive crisis�no indication for emergent antihypertensives
Acute Exacerbation and/or Progression of Chronic Illness: HTN
*Radiology
Radiology exam reviewed: radiology read reviewed
*Pulse Oximetry
Patient hypoxic: no
*Critical Care Note
Total Time (30-74mins, 75-104mins- exclusive of procedures): Not Applicable
Data Reviewed
Source: patient, records and family (Daughter)
Further Testing Considered But Not Given:
Considered x-ray of the left knee, considered CT of the cervical spine
ED Attending Note
-
Portions of this chart may have been created with voice recognition software.� Occasional wrong word or��sound alike� substitutions may have occurred due to the inherent limitations of voice recognition software.
Discharge Plan
Departure
Patient Disposition: Home (Routine Discharge)
Date of Disposition: 09/03/24
Time of Disposition: 16:07
Patient with high blood pressure during this ER visit?: Yes
Discharge Problem:
Fall, Forehead contusion
Instructions: Preventing falls in adults
Prescriptions:
No Action
furosemide [Lasix] 40 mg Tablet
40 mg PO BID
metoprolol tartrate 50 mg Tablet
75 mg PO BID
Repatha SureClick 140 mg/mL Pen Injector
140 mg SC Q2W
Rx Instructions:
and mo
cetirizine [Zyrtec] 10 mg Tablet
10 mg PO DAILY
cyanocobalamin (vitamin B-12) 1,000 mcg Tablet
1,000 mcg PO DAILY
zinc sulfate 50 mg zinc (220 mg) Tablet
50 mg PO QPM
ascorbic acid (vitamin C) [Vitamin C] 500 mg Tablet
1,000 mg PO DAILY
Prolia 60 mg/mL Syringe
60 mg SC [id number]
turmeric 400 mg Capsule
1,500 mg PO BID
multivitamin Tablet
1 tab PO DAILY
guar gum Packet
1 tbsp PO DAILY
Eliquis 2.5 mg Tablet
2.5 mg PO BID
Probiotic 100 billion cell Capsule
1 cap PO DAILY
lisinopril 2.5 mg Tablet
2.5 mg PO DAILY
rosuvastatin [Crestor] 10 mg Tablet
10 mg PO DAILY
cholecalciferol (vitamin D3) 125 mcg (5,000 unit) Tablet
125 mcg PO DAILY
calcium carbonate 650 mg calcium (1,625 mg) Tablet
650 mg PO DAILY
Referrals:
Len Salazar MD [Family Provider] - Follow up in 1 week (For BP check)
Activity Restrictions/Additional Instructions:
Thank you for visiting the Emergency Department at [facility].
1. Please schedule a follow up appointment as directed. Call first thing tomorrow morning to make an appointment.
2. If indicated, please take your medications as instructed and indicated on discharge paperwork.
3. If any of your symptoms do not improve, or persist, or become more severe within 6-12 hours, please return to the emergency department for further care.
4. Please return to the emergency department if you develop a headache, neck pain/stiffness, fever greater than 100.4F, chest pain, shortness of breath, persistent nausea, vomiting, slurred speech, difficulty walking, numbness/tingling, weakness,
signs of infection or any other symptoms that are worrisome to you.
Please call [phone] if you have any questions.
Interventions
Interventions:
*Risk Screen - Suicide Last Done: 09/03/24 14:07
*General Assessment Last Done: 09/03/24 14:07
*Neglect/Abuse Screening Last Done: 09/03/24 14:07
Discharge Date and Time
Print Language: SERBIAN
[2024-09-03 16:11] VITALS: BMI 25.4
[2024-09-03 16:21] VITALS: BP 167/67
== END 2024-09-03 16:30 | disposition home or self-care (01) ==
LOC: EMR 14:06
PROVIDERS: EMERGENCY PHYSICIAN Emergency Medicine; FAMILY PHYSICIAN Internal Medicine
DX: S00.83XA Contusion of other part of head, initial encounter (principal); S00.81XA Abrasion of other part of head, initial encounter; W01.0XXA Fall on same level from slipping, tripping and stumbling without subsequent striking against object, initial encounter; Y92.009 Unspecified place in unspecified non-institutional (private) residence as the place of occurrence of the external cause; I10 Essential (primary) hypertension; E78.00 Pure hypercholesterolemia, unspecified; I25.10 Atherosclerotic heart disease of native coronary artery without angina pectoris; I48.91 Unspecified atrial fibrillation; Z79.01 Long term (current) use of anticoagulants
CPT/HCPCS: 99284; 70450; 90471; 90715

== ENCOUNTER → 2024-10-14 09:16 | Outpatient (REF) | payer OTHER, SELFPAY ==
[2024-10-14 10:50] LABS: Hematocrit 36.8 % (37.0-47.0); Hemoglobin 11.5 g/dL (12.0-16.0); Mean Corp Hgb Conc. 31.3 g/dL (33.0-37.0); Mean Corpuscular Volume 92.0 fL (81.0-99.0); Nucleated Red Blood Cells % 0 %; Platelet Count 163 10^3/uL (130-400); Red Cell Dist. Width 15.7 % (11.5-14.5)
[2024-10-14 11:40] LABS: ALT (SGPT) 53 U/L (0-35); AST (SGOT) 45 U/L (14-36); Albumin 4.4 g/dl (3.5-5.0); Alkaline Phosphatase 69 U/L (38-126); Blood Urea Nitrogen 28 mg/dl (7-17); Calcium 9.5 mg/dl (8.4-10.2); Carbon Dioxide 30 mmol/L (22-30); Chloride 107 mmol/L (98-107); Glucose 99 mg/dl (70-99); Potassium 4.7 mmol/L (3.5-5.1); Sodium 143 mmol/L (135-145); Total Protein 7.0 g/dl (6.3-8.2); eGFR > 60.00
== END ==
LOC: REG 09:16
PROVIDERS: ATTENDING PHYSICIAN Internal Medicine; OTHER PHYSICIAN Internal Medicine Cardiovascular Disease
DX: I48.0 Paroxysmal atrial fibrillation (principal); D64.9 Anemia, unspecified; E83.51 Hypocalcemia
CPT/HCPCS: 36415; 80053; 85025

== ENCOUNTER 2024-10-26 08:35 | Inpatient (IN) | payer OTHER, SELFPAY ==
[2024-10-25] VITALS (15 sets, daily range): BP systolic 88–115; BP diastolic 40–78; BMI 20.8; BMI 22.8
[2024-10-25 15:13] LABS: Hematocrit 37.9 % (37.0-47.0); Hemoglobin 12.9 g/dL (12.0-16.0); Mean Corp Hgb Conc. 34.0 g/dL (33.0-37.0); Mean Corpuscular Volume 84.4 fL (81.0-99.0); Platelet Count 104 10^3/uL (130-400); Red Cell Dist. Width 15.4 % (11.5-14.5)
[2024-10-25 15:16] LABS: ALT (SGPT) 33 U/L (0-35); AST (SGOT) 35 U/L (14-36); Albumin 4.0 g/dl (3.5-5.0); Alkaline Phosphatase 61 U/L (38-126); Blood Urea Nitrogen 50 mg/dl (7-17); Calcium 8.2 mg/dl (8.4-10.2); Carbon Dioxide 24 mmol/L (22-30); Chloride 98 mmol/L (98-107); Glucose 134 mg/dl (70-99); Lipase 231 U/L (23-300); Potassium 3.8 mmol/L (3.5-5.1); Sodium 131 mmol/L (135-145); Total Protein 6.9 g/dl (6.3-8.2); eGFR 31.41
--- NOTE | 2024-10-25 17:07 | ED.GENMED ---
History of Present Illness
General
Chief Complaint: Abdominal Symptoms
Source: patient
Exam Limitations: none
Time Seen by Provider: 10/25/24 16:50
History of Present Illness
History of Present Illness:
84-year-old female notes that she has been sick with some type of illness since 4 days ago. She started with mild abdominal pain and vomited twice. This was followed by softer bowel movements but this morning she had loose watery stools. She saw
her family doctor today and was found to have low blood pressure in the office and sent here for hydration. Currently she states the loose stools have resolved. She denies abdominal pain. No fever. She just feels fatigued. She has a history of
lymphedema, open heart surgery, but no history of CHF.
Phy Exam
Physical Exam
Physical Exam:
General: Well-appearing female no acute respiratory distress
HEENT: Normocephalic atraumatic
Heart: Regular rate and rhythm
Lungs: Clear no wheeze
Abdomen: Soft nontender nondistended no guarding or rebound
Extremities: No cyanosis
Course
Orders/Labs/Results
Orders:
Orders
10/25/24 14:50
Complete Blood Count/No Diff Urgent
Comprehensive Metabolic Panel Urgent
Lipase Urgent
10/25/24 17:06
0.9% Sodium Chloride 1000 ml [Nss] 1,000 ml IV BOLUS
10/25/24 19:40
Bladder Scan- Treatment ONCE
0.9% Sodium Chloride 1000 ml [Nss] 1,000 ml IV BOLUS
Abnormal Lab Results
10/25/24
14:50
RDW 15.4 H %
(11.5-14.5)
Plt Count 104 L 10^3/uL
(130-400)
MPV 11.1 H fL
(7.4-10.4)
Sodium 131 L mmol/L
(135-145)
BUN 50 H mg/dl
(7-17)
Creatinine 1.6 H mg/dL
(0.6-1.0)
Glucose 134 H mg/dl
(70-99)
Calcium 8.2 L mg/dl
(8.4-10.2)
10/25/24 14:50
10/25/24 14:50
Vital Signs
Initial and Last Documented VS:
Initial Vital Signs
Temp Pulse Resp BP Pulse Ox
99.2 F 84 16 113/57 97
10/25/24 14:35 10/25/24 14:35 10/25/24 14:35 10/25/24 14:35 10/25/24 14:35
Last Documented Vital Signs
Temp Pulse Resp BP Pulse Ox
99.2 F 89 15 98/47 97
10/25/24 14:35 10/25/24 17:38 10/25/24 17:38 10/25/24 19:30 10/25/24 17:38
MDM/Problems Addressed
Differential Diagnosis Includes:
Patient now with benign abdominal exam. She was normotensive at triage but was hypotensive at the family office. SPECT volume depletion. Creatinine today is bumped at 1.6 with a BUN of 50. I also suspect could be prerenal. Will hydrate and
recheck patient.
*Pulse Oximetry
SaO2: 97
Oxygen Mode of Delivery: Room air
Patient hypoxic: no
*Critical Care Note
Total Time (30-74mins, 75-104mins- exclusive of procedures): Not Applicable
Update Note
Update Note:
Noted with creatinine of 1.6 today which is doubled at her baseline. Blood pressure remains soft with systolic in the 80s and 90s. Will keep in hospital for acute kidney injury in the setting of hypotension likely dehydration
ED Attending Note
-
Portions of this chart may have been created with voice recognition software.� Occasional wrong word or��sound alike� substitutions may have occurred due to the inherent limitations of voice recognition software.
Discharge Plan
Departure
Patient Disposition: Home (Routine Discharge)
Date of Disposition: 10/25/24
Time of Disposition: 19:42
Patient with high blood pressure during this ER visit?: No
Discharge Problem:
AGNIESZKA (acute kidney injury), Dehydration
Prescriptions:
No Action
furosemide [Lasix] 40 mg Tablet
40 mg PO BID
metoprolol tartrate 50 mg Tablet
75 mg PO BID
Repatha SureClick 140 mg/mL Pen Injector
140 mg SC Q2W
Rx Instructions:
and
cetirizine [Zyrtec] 10 mg Tablet
10 mg PO DAILY
cyanocobalamin (vitamin B-12) 1,000 mcg Tablet
1,000 mcg PO DAILY
zinc sulfate 50 mg zinc (220 mg) Tablet
50 mg PO QPM
ascorbic acid (vitamin C) [Vitamin C] 500 mg Tablet
1,000 mg PO DAILY
Prolia 60 mg/mL Syringe
60 mg SC [id number]
turmeric 400 mg Capsule
1,500 mg PO BID
multivitamin Tablet
1 tab PO DAILY
guar gum Packet
1 tbsp PO DAILY
Eliquis 2.5 mg Tablet
2.5 mg PO BID
Probiotic 100 billion cell Capsule
1 cap PO DAILY
lisinopril 2.5 mg Tablet
2.5 mg PO DAILY
rosuvastatin [Crestor] 10 mg Tablet
10 mg PO DAILY
cholecalciferol (vitamin D3) 125 mcg (5,000 unit) Tablet
125 mcg PO DAILY
calcium carbonate 650 mg calcium (1,625 mg) Tablet
650 mg PO DAILY
Referrals:
Len Salazar MD [Family Provider, Internal Medicine]
Interventions
Interventions:
*Risk Screen - Suicide Last Done: 10/25/24 14:35
*General Assessment Last Done: 10/25/24 14:35
*Neglect/Abuse Screening Last Done: 10/25/24 14:35
*ED- Fall Risk Assessment Last Done: 10/25/24 17:39
*ED COVID-19 Vaccine History Last Done: 10/25/24 17:39
BW-Oxpfrp-Zqryztpzoq Assessment Last Done: 10/25/24 17:42
Discharge Date and Time
Print Language: ARABIC
[2024-10-25] MEDS: NSS 1000 IV ×2 (17:36→21:00)
--- NOTE | 2024-10-25 20:42 | HPS.HSE ---
Family Physician
-
Family Physician: Len Salazar
Chief Complaint
-
Nausea vomiting diarrhea
History of Present Illness
This is a 84-year-old with past medical history significant for CAD status post CABG, CHF with preserved EF, history of atrial fibrillation, hypertension and hyperlipidemia who presents to the emergency department after being found to have low blood
pressure at the doctor's office today.
Patient reported that she has been having some abdominal illness for the last 4 days. He started with mild abdominal pain and vomiting x 2. She had soft stools but not diarrhea initially. She had decreased p.o. intake and continue to take
diuretic. She says she is continue to urinate. She has not had any further vomiting. She says abdominal pain had resolved. This a.m. she arose and had watery stools x 1. She denies any melena or hematochezia. She denies any cough or shortness
of breath. She has no increased lower extremity edema weight gain. She is denying any chest pain palpitations. She has not been feeling dizzy or lightheaded. She has no known sick contacts and denies any recent travels.
On arrival in the emergency department she was afebrile with a temp of 99, blood pressure was 115/50 with a pulse of 89, she was satting at 7% on room air.
CBC notable for a thrombocytopenia with a platelet count of 104 but otherwise unremarkable.
Electrolytes notable for sodium of 131, BUN was elevated at 50 and creatinine is doubled to 1.6 from baseline of 0.8. Glucose was normal.
Medical History
Past Medical History
Past Medical History: Reports Other
Additional Past Medical History:
Hypertension
Venous insufficiency
Hyperlipidemia
Diabetes not a lot going to
Reactive airways disease
Basal cell cancer
Status post thyroid irradiation on the
Atrial fibrillation postoperatively
CAD status post DC
Will show arthritis
Past Surgical History: Reports Other
Additional Past Surgical History:
CABG x 3, 08/2018
Social History
Tobacco: Non-smoker
Alcohol: None
Drug: None
Employment: Not Employed
Family History
Family History: Not pertinent
Allergies / Home Medications
Allergies reflects when Allergies were last updated in [facility].
Home Medications with original date entered in [facility]
Allergy/Medication List:
Allergies
Allergy/AdvReac Type Severity Reaction Status Date / Time
No Known Allergies Allergy Verified 10/25/24 14:39
Home Medications
ascorbic acid (vitamin C) 500 mg tablet (Vitamin C) 1,000 mg PO DAILY 06/28/24
cetirizine 10 mg tablet (Zyrtec) 10 mg PO DAILY 06/28/24
cyanocobalamin (vitamin B-12) 1,000 mcg tablet 1,000 mcg PO DAILY 06/28/24
denosumab 60 mg/mL subcutaneous syringe (Prolia) 60 mg SC [id number] 06/28/24
evolocumab 140 mg/mL subcutaneous pen injector (Repatha SureClick) 140 mg SC Q2W 06/28/24
furosemide 40 mg tablet (Lasix) 40 mg PO Daily 06/28/24
metoprolol tartrate 50 mg tablet 75 mg PO BID 06/28/24
turmeric 400 mg capsule 1,500 mg PO BID 06/28/24
zinc sulfate 50 mg zinc (220 mg) tablet 50 mg PO QPM 06/28/24
Lactobacillus 40-Bifidobact 3-S.thermophilus 100 billion cell capsule (Probiotic) 1 cap PO DAILY 07/15/24
apixaban 2.5 mg tablet (Eliquis) 2.5 mg PO BID 07/15/24
guar gum 1 tbsp PO DAILY 07/15/24
multivitamin 1 tab PO DAILY 07/15/24
lisinopril 2.5 mg tablet 2.5 mg PO DAILY 08/14/24
rosuvastatin 10 mg tablet (Crestor) 10 mg PO DAILY 08/14/24
cholecalciferol (vitamin D3) 125 mcg (5,000 unit) tablet 125 mcg PO DAILY 08/20/24
calcium carbonate 650 mg PO DAILY 08/22/24
Review of Systems
-
Constitutional: Reports No Symptoms
EENT: Reports No Symptoms
Respiratory: Reports No Symptoms
Cardiac: Reports No Symptoms
Abdomen/GI: Reports Abdominal Pain, Nausea, Vomiting and Diarrhea
: Reports No Symptoms
Musculoskeletal: Reports No Symptoms
Skin: Reports No Symptoms
Neurological: Reports No Symptoms
Endocrine: Reports No Symptoms
Hematologic/Lymphatic: Reports No Symptoms
Psych: Reports No Symptoms
Physical Exam
Vital Signs
Vital Signs
Temp Pulse Resp BP Pulse Ox
99.2 F 89 15 115/52 97
10/25/24 14:35 10/25/24 17:38 10/25/24 17:38 10/25/24 20:00 10/25/24 17:38
Physical Exam
General: Well Developed, Well Nourished and No Apparent Distress
HEENT: NormoCephalic, Moist mucous membranes and Atraumatic
Respiratory: Clear
Cardiac: S1/S2 and Regular Rhythm; No Murmur or Rub
GI: Soft, Non Tender, Non Distended and Normal Bowel Sounds; No Organomegaly
Rectal: Deferred by Provider
Musculoskeletal: No Clubbing, No Cyanosis and No Edema
Skin: No Rash
Neuro: Nonfocal/grossly intact
Laboratory Results
-
10/25/24 14:50
10/25/24 14:50
Laboratory Results
Total Bilirubin 1.2 mg/dl (0.2-1.3) 10/25/24 14:50
AST 35 U/L (14-36) 10/25/24 14:50
ALT 33 U/L (0-35) 10/25/24 14:50
Alkaline Phosphatase 61 U/L (38-126) 10/25/24 14:50
Lipase 231 U/L (23-300) 10/25/24 14:50
Data Reviewed
-
Lab Data: Labs Reviewed by me
Old Records: Reviewed
Impression/Plan
-
IMPRESSION:
84-year-old is history of CAD status post CABG, congestive heart failure, chronic lymphedema who presents to the emergency department with low blood pressures at PMD clinic after complaining of 4 days of GI symptoms including abdominal discomfort
vomiting and diarrhea. Few bouts of diarrhea today. She is afebrile and has no signs of an acute sepsis. She is found to be in AGNIESZKA with a creatinine of 1.6 up from a baseline of 0.8 and a BUN of 50. BP stable in the ED. Suspect hypovolemic AGNIESZKA
in the setting of fluid losses and ongoing diuretic use. Abdominal exam is benign no evidence of peritonitis.
PLAN:
AGNIESZKA -secondary to hypovolemia
- Admit to MedSurg observation
- IV fluids 2 L given in the ED
- Repeat BMP in 6 hours
- Check orthostatic vital sign
- If BUN remains elevated or patient orthostatic will give another 500 cc bolus and reevaluate
- Hold Lasix
- Hold lisinopril for now
- monitor i/o
Diarrhea -suspect acute enteritis possibly viral etiology
-Stool studies
-Consider as needed Imodium
-Pain control and antiemetics
CHF -patient currently hypovolemic
-Holding diuretics
Atrial fibrillation
- Continue metoprolol
-Eliquis 2.5 twice daily
DVT prophylaxis -on Eliquis
CODE STATUS�full code
[2024-10-26 00:03] VITALS: BMI 22.8
[2024-10-26] MEDS: ELIQUIS 2.5 MG PO ×3 (00:04→20:40)
[2024-10-26 00:07] LABS: Blood Urea Nitrogen 43 mg/dl (7-17); Calcium 6.8 mg/dl (8.4-10.2); Carbon Dioxide 23 mmol/L (22-30); Chloride 105 mmol/L (98-107); Estimated Creatinine Clearance 20 ml/min; Glucose 134 mg/dl (70-99); Potassium 3.6 mmol/L (3.5-5.1); Sodium 135 mmol/L (135-145); eGFR 36.87
[2024-10-26] MEDS: CALCIUM GLUCONATE 100 IV (00:34)
[2024-10-26 07:00] VITALS: BP 110/57
--- NOTE | 2024-10-26 07:31 | W.PN.HOSP.TC ---
Addendum entered and electronically signed by Shawna Estevez MD 10/26/24 15:54:
I saw and evaluated the patient independently. I reviewed the resident�s note and agree with findings and plan as documented by Dr. Galarza.
GENERAL: well developed, well nourished, female in no apparent distress
HEENT: NC/AT
HEART: regular rate and rhythm, +S1, +S2
LUNGS : faint crackles at bases bilaterally
ABDOM: soft, nontender, nondistended, + bowel sounds
EXT: no cyanosis, clubbing, or edema
NEUROLOGIC: grossly intact
Prerenal acute kidney injury likely secondary to hypovolemia--likely from hypotension (sent from PCP office)--pt had n/v/d/lisinopril/poor PO intake--received 2L IVF without standing IVF ordered--creat this AM 1.1 which is still above
baseline--started IVF and monitor creat--hold lasix and lisinopril
Volume loss secondary to diarrhea and vomiting--resolved--likely self limiting gastroenteritis--stop reglan--cont antiemetics--pt no longer has diarrhea, stop stool studies
Hyperlipidemia--rosuvastatin
Essential hypertension--Holding lisinopril--Continue metoprolol
paroxysmal Atrial fibrillation--cont metoprolol and Eliquis
HFpEF--chronic--no exacerbation--holding diurestics
DVT Proph--Eliquis
code status--FULL CODE
Original Note:
Today's Communication/Plan
-
Patient is responsive to IV fluids and her creatinine is markedly improved compared to her admission
Continue IV fluid support and will recheck labs in the afternoon
Depending on lab results we will consider moving forward with discharge planning
Assessment / Plan
Assessment / Plan
HPI: Patient is an 84-year-old woman with a past medical history significant for coronary artery disease s/p CABG, congestive heart failure with preserved ejection fraction, history of atrial fibrillation, lymphedema, hypertension, and
hyperlipidemia who presented to the emergency department after being found to have low blood pressure at the doctor's office on the day of his presentation. Patient reported that she had been having abdominal pain and vomiting (x2) with soft stools
and no diarrhea for the last 4 days. She had decreased oral intake and continued to take her diuretic. She had been urinating normally. At the time of her presentation to the emergency department she had not had any further vomiting and that her
abdominal pain had resolved. On the morning of her presentation to the emergency department she woke up and had watery stools but did not have any melena or hematochezia. She denied any cough or shortness of breath. She had no pedal or lower
extremity edema. She denied having any chest pain or palpitations. She did not feel dizzy or lightheaded. On arrival to the emergency department she was afebrile with a temperature of 99, blood pressure was 115/50 with a pulse of 89, her oxygen
saturation was 97% on room air. Patient had thrombocytopenia with a platelet count of 104. Sodium was 131, BUN elevated at 15, creatinine was 1.6 from a baseline of 0.8. She was admitted to [facility] for AGNIESZKA secondary to hypovolemia.
Assessment/Plan:
-Prerenal acute kidney injury secondary to hypovolemia: Unresolved�improving
Patient had numerous bouts of nausea with vomiting and diarrhea prior to her presentation in the emergency department.
2 L of IV fluids were given in the emergency department -patient immediately responding to IV fluid resuscitation
Continue to follow BMP
Follow vitals and monitor orthostatics
Hold Lasix as this patient is hypovolemic
Hold lisinopril to avoid further insult to the kidneys
Follow I's and O's
-Volume loss secondary to diarrhea and vomiting: Unresolved�monitoring
Likely due to viral gastroenteritis
Pain control as needed
Reglan as needed
Stool studies ordered
-Hyperlipidemia: Stable�monitoring
Continue rosuvastatin
-Essential hypertension: Stable�monitoring
Holding lisinopril to avoid further renal insult
Continue metoprolol tartrate 75 mg p.o. twice daily
-Atrial fibrillation: Stable�monitoring
Continue apixaban 2.5 mg p.o. twice daily
Continue metoprolol tartrate 75 mg p.o. twice daily
-CHF: Stable�monitoring
Holding diuretics
FULL CODE STATUS
DVT Prophylaxis: Eliquis
Imaging: Not applicable
Procedures: Not applicable
Anticipated Discharge: Within 24 hours
Subjective/Interval History
-
Date of Service: October 26, 2024
Met with patient at the bedside. She is calm and cooperative in discussion. Frequently makes jokes and likes to share about her personal life. 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 She stated that she felt foolish that she had not been paying much attention to her health as of late. She did not recognize that her food and fluid intake was inadequate while she was having frequent bouts of diarrhea with
vomiting. She also recognizes that her being on Lasix while all of this was happening was a major factor in her hypovolemic state. She states that she feels much better now and almost feels ready to go home.
Objective Data
-
Labs:
Labs
10/26/24 07:18
Vital Signs:
Vital Signs
Temp Pulse Resp BP Pulse Ox
98.6 F 84 20 112/51 98
10/25/24 23:15 10/25/24 23:15 10/25/24 23:15 10/25/24 23:15 10/26/24 02:15
Review of Systems
-
History Source: Patient
Constitutional: Reports No Symptoms
EENT: Reports No Symptoms Reported
Respiratory: Reports No Symptoms
Cardiac: Reports No Symptoms
Abdomen/GI: Reports No Symptoms
Breast: Reports No Symptoms
Genitourinary: Reports No Symptoms
Musculoskeletal: Reports No Symptoms
Skin: Reports No Symptoms
Neuro: Reports No Symptoms
Endocrine: Reports No Symptoms
Physical Exam
-
General: Well Developed, Well Nourished and No Apparent Distress
HEENT: Normocephalic, Atraumatic and Moist Mucous Membranes
Respiratory: Clear to Auscultation and Non Labored Respirations; Negative Wheezes, Rales, Rhonchi or Crackles
Cardiac: S1/S2 and Irregular Rhythm; Negative Murmur, Rub or JVD
Breast: Deferred by me
GI: Soft, Nontender, Nondistended and Normal Bowel Sounds
Rectal: Deferred by Provider
Genito-urinary: Deferred by me
Musculoskeletal: No Clubbing, No Cyanosis and Other (Lymphedema of the bilateral lower legs); Negative No Edema
Skin: Warm and Dry; Negative Rash, Ulcers or Lesions
Neuro: Awake, Alert and Oriented
Psych: Calm
[2024-10-26 07:35] LABS: Hematocrit 31.4 % (37.0-47.0); Hemoglobin 10.4 g/dL (12.0-16.0); Mean Corp Hgb Conc. 33.1 g/dL (33.0-37.0); Mean Corpuscular Volume 85.8 fL (81.0-99.0); Platelet Count 86 10^3/uL (130-400); Red Cell Dist. Width 15.4 % (11.5-14.5)
[2024-10-26 07:55] LABS: Blood Urea Nitrogen 39 mg/dl (7-17); Calcium 7.8 mg/dl (8.4-10.2); Carbon Dioxide 26 mmol/L (22-30); Chloride 105 mmol/L (98-107); Estimated Creatinine Clearance 26 ml/min; Glucose 114 mg/dl (70-99); Magnesium 2.3 mg/dl (1.6-2.3); Potassium 3.8 mmol/L (3.5-5.1); Sodium 135 mmol/L (135-145); eGFR 49.24
[2024-10-26] MEDS: CRESTOR 10 MG PO (08:19)
[2024-10-26] MEDS: ZYRTEC 5 MG PO (08:19)
[2024-10-26] MEDS: LOPRESSOR 75 MG PO ×2 (08:20→20:40)
[2024-10-26] MEDS: VITAMIN B-12 1000 MCG PO (08:20)
[2024-10-26 11:35] VITALS: BP 105/51; BP 108/47; BP 98/50; PULSE 82; PULSE 85
[2024-10-26] MEDS: NSS 1000 IV ×2 (11:45→16:06)
[2024-10-26 14:45] VITALS: BP 105/51
[2024-10-26 15:00] VITALS: BP 122/63
[2024-10-26 15:29] LABS: ALT (SGPT) 92 U/L (0-35); AST (SGOT) 228 U/L (14-36); Albumin 3.3 g/dl (3.5-5.0); Alkaline Phosphatase 81 U/L (38-126); Blood Urea Nitrogen 39 mg/dl (7-17); Calcium 8.4 mg/dl (8.4-10.2); Carbon Dioxide 25 mmol/L (22-30); Chloride 103 mmol/L (98-107); Estimated Creatinine Clearance 26 ml/min; Glucose 140 mg/dl (70-99); Potassium 4.3 mmol/L (3.5-5.1); Sodium 135 mmol/L (135-145); Total Protein 5.9 g/dl (6.3-8.2); eGFR 49.24
--- NOTE | 2024-10-26 15:54 | CM ---
Patient seen at bedside on . Patient states that she lives with her that she cares for in a 2 story home. Patient has a walker and stair glide at home. Patient uses [facility] and her physician is Dr. Corey Salazar. Patient is
admitted as OBS/JIMENEZ and form reviewed with patient. Signed form placed on chart. patient stated that she plans to go home and will discuss with PCP any needs for VN after discharge. Patient indicated that she would try to not push herself as much
in her caregiving responsibilities. CM will continue to follow for discharge planning needs.
Plan; home with VN vs home with no needs
[2024-10-26 23:19] VITALS: BP 124/53
[2024-10-27] MEDS: NSS 1000 IV (02:00)
[2024-10-27 07:25] VITALS: BP 121/53
--- NOTE | 2024-10-27 07:30 | W.PN.HOSP.TC ---
Addendum entered and electronically signed by Shawna Estevez MD 10/27/24 14:56:
I saw and evaluated the patient independently. I reviewed the resident�s note and agree with findings and plan as documented by Dr. Galarza.
GENERAL: well developed, well nourished, female in no apparent distress
HEENT: NC/AT
HEART: regular rate and rhythm, +S1, +S2
LUNGS : faint crackles at bases bilaterally
ABDOM: soft, nontender, nondistended, + bowel sounds
EXT: no cyanosis, clubbing, or edema
NEUROLOGIC: grossly intact
Prerenal acute kidney injury likely secondary to hypovolemia--likely from hypotension (sent from PCP office)--pt had n/v/d/lisinopril/poor PO intake--received 2L IVF without standing IVF ordered--creat this AM back at baseline----restart lasix and
lisinopril
Volume loss secondary to diarrhea and vomiting--resolved--likely self limiting gastroenteritis--stop reglan--cont antiemetics--pt no longer has diarrhea, stop stool studies
Hyperlipidemia--rosuvastatin
Essential hypertension--Holding lisinopril--Continue metoprolol
paroxysmal Atrial fibrillation--cont metoprolol and Eliquis
HFpEF--chronic--no exacerbation--holding diurestics
DVT Proph--Eliquis
code status--FULL CODE
OK for D/C
Original Note:
Today's Communication/Plan
-
Patient is back at her baseline and medically stable. We will move forward with discharge planning.
Assessment / Plan
Assessment / Plan
HPI: Patient is an 84-year-old woman with a past medical history significant for coronary artery disease s/p CABG, congestive heart failure with preserved ejection fraction, history of atrial fibrillation, lymphedema, hypertension, and
hyperlipidemia who presented to the emergency department after being found to have low blood pressure at the doctor's office on the day of his presentation. Patient reported that she had been having abdominal pain and vomiting (x2) with soft stools
and no diarrhea for the last 4 days. She had decreased oral intake and continued to take her diuretic. She had been urinating normally. At the time of her presentation to the emergency department she had not had any further vomiting and that her
abdominal pain had resolved. On the morning of her presentation to the emergency department she woke up and had watery stools but did not have any melena or hematochezia. She denied any cough or shortness of breath. She had no pedal or lower
extremity edema. She denied having any chest pain or palpitations. She did not feel dizzy or lightheaded. On arrival to the emergency department she was afebrile with a temperature of 99, blood pressure was 115/50 with a pulse of 89, her oxygen
saturation was 97% on room air. Patient had thrombocytopenia with a platelet count of 104. Sodium was 131, BUN elevated at 15, creatinine was 1.6 from a baseline of 0.8. She was admitted to [facility] for AGNIESZKA secondary to hypovolemia.
Assessment/Plan:
-Prerenal acute kidney injury secondary to hypovolemia: Resolved�monitoring
Patient had numerous bouts of nausea with vomiting and diarrhea prior to her presentation in the emergency department.
2 L of IV fluids were given in the emergency department -patient immediately responding to IV fluid resuscitation
Continue to follow BMP
Follow vitals and monitor orthostatics
Hold Lasix as this patient is hypovolemic
Hold lisinopril to avoid further insult to the kidneys
Follow I's and O's
Patient's creatinine has returned within normal limits. It is 0.8 on 10/27/2024
-Volume loss secondary to diarrhea and vomiting: Unresolved�monitoring
Likely due to viral gastroenteritis
Pain control as needed
Reglan as needed
Stool studies ordered
-Hyperlipidemia: Stable�monitoring
Continue rosuvastatin
-Essential hypertension: Stable�monitoring
Holding lisinopril to avoid further renal insult
Continue metoprolol tartrate 75 mg p.o. twice daily
-Atrial fibrillation: Stable�monitoring
Continue apixaban 2.5 mg p.o. twice daily
Continue metoprolol tartrate 75 mg p.o. twice daily
-CHF: Stable�monitoring
Holding diuretics
FULL CODE STATUS
DVT Prophylaxis: Eliquis
Imaging: Not applicable
Procedures: Not applicable
Anticipated Discharge: Today
Subjective/Interval History
-
Date of Service: October 27, 2024
Met with patient at the bedside. She is pleasant in discussion and spoke about her family. She hopes to be discharged in the near future because her daughter will have to go to work tomorrow. Her daughter is currently taking care of her
who is reliant on the patient for his daily needs.
Objective Data
-
Labs:
Labs
10/27/24 07:40
10/27/24 09:00
Vital Signs:
Vital Signs
Temp Pulse Resp BP Pulse Ox
98.5 F 73 16 121/53 97
10/27/24 07:25 10/27/24 07:25 10/27/24 07:25 10/27/24 07:25 10/27/24 07:25
I&O
10/26/24 10/27/24 10/28/24
06:59 06:59 06:59
Intake Total 1310 / 1310
Balance 1310 / 1310
Review of Systems
-
History Source: Patient
All other systems: Reviewed and negative
Physical Exam
-
General: Well Developed, Well Nourished, No Apparent Distress and Comfortable
HEENT: Normocephalic, Atraumatic and Moist Mucous Membranes
Respiratory: Clear to Auscultation; Negative Wheezes, Rales, Rhonchi or Crackles
Cardiac: Regular Rhythm (Currently not in atrial fibrillation) and S1/S2
Breast: Deferred by me
GI: Soft, Nontender, Nondistended and Normal Bowel Sounds
Rectal: Deferred by Provider
Genito-urinary: Deferred by me
Musculoskeletal: No Clubbing, No Cyanosis and No Edema
Skin: Warm and Dry; Negative Rash, Ulcers or Lesions
Neuro: Awake, Alert, Oriented and AO x 3
Psych: Calm
[2024-10-27 08:21] LABS: Hematocrit 34.2 % (37.0-47.0); Hemoglobin 11.2 g/dL (12.0-16.0); Mean Corp Hgb Conc. 32.7 g/dL (33.0-37.0); Mean Corpuscular Volume 86.4 fL (81.0-99.0); Platelet Count 101 10^3/uL (130-400); Red Cell Dist. Width 15.7 % (11.5-14.5)
[2024-10-27] MEDS: CRESTOR 10 MG PO (08:47)
[2024-10-27] MEDS: ELIQUIS 2.5 MG PO (08:47)
[2024-10-27] MEDS: ZYRTEC 5 MG PO (08:47)
[2024-10-27] MEDS: VITAMIN B-12 1000 MCG PO (08:47)
[2024-10-27] MEDS: LOPRESSOR 75 MG PO (08:48)
[2024-10-27 08:51] VITALS: BP 121/53; BP 122/53; BP 128/61; PULSE 72; PULSE 73; PULSE 78
[2024-10-27 10:09] LABS: ALT (SGPT) 126 U/L (0-35); AST (SGOT) 153 U/L (14-36); Albumin 3.0 g/dl (3.5-5.0); Alkaline Phosphatase 88 U/L (38-126); Blood Urea Nitrogen 26 mg/dl (7-17); Calcium 8.1 mg/dl (8.4-10.2); Carbon Dioxide 24 mmol/L (22-30); Chloride 111 mmol/L (98-107); Estimated Creatinine Clearance 35 ml/min; Glucose 139 mg/dl (70-99); Magnesium 2.3 mg/dl (1.6-2.3); Potassium 3.9 mmol/L (3.5-5.1); Sodium 139 mmol/L (135-145); Total Protein 5.5 g/dl (6.3-8.2); eGFR > 60.00
--- NOTE | 2024-10-27 14:00 | W.DCSUMMARY ---
Addendum entered and electronically signed by Shawna Estevez MD 10/27/24 17:23:
Read, reviewed, and agree. See same day progress note for additional details. Time spent coordinating care, DC planning, review of DC plan of care with resident, transition of care, review of records in EMR, med rec, consults, notes, d/w
consultants, nursing, family, and CM = 31 minutes
Original Note:
Discharge Summary
Discharge Data
Date of Admission: 10/26/24
Date of Discharge: 10/27/24
-
Pending Results: No
Hospital Course
Patient is an 84-year-old woman with a past medical history significant for coronary artery disease s/p CABG, congestive heart failure with preserved ejection fraction, history of atrial fibrillation, lymphedema, hypertension, and hyperlipidemia who
presented to the emergency department after being found to have low blood pressure at the doctor's office on the day of his presentation. Patient reported that she had been having abdominal pain and vomiting (x2) with soft stools and no diarrhea
for the last 4 days. She had decreased oral intake and continued to take her diuretic. She had been urinating normally. At the time of her presentation to the emergency department she had not had any further vomiting and that her abdominal pain
had resolved. On the morning of her presentation to the emergency department she woke up and had watery stools but did not have any melena or hematochezia. She denied any cough or shortness of breath. She had no pedal or lower extremity edema.
She denied having any chest pain or palpitations. She did not feel dizzy or lightheaded. On arrival to the emergency department she was afebrile with a temperature of 99, blood pressure was 115/50 with a pulse of 89, her oxygen saturation was 97%
on room air. Patient had thrombocytopenia with a platelet count of 104. Sodium was 131, BUN elevated at 15, creatinine was 1.6 from a baseline of 0.8. She was admitted to [facility] for [facility] secondary to hypovolemia.
She was immediately started on IV fluids and her vitals and orthostatics were monitored. Lasix was held along with lisinopril in order to avoid further insult to the kidneys. I's and O's were followed. With IV fluid resuscitation the patient's
creatinine trended downwards back to her baseline. The patient's volume loss secondary to diarrhea and vomiting was likely due to a viral gastroenteritis and resolved over the course of the hospital stay. Patient recognized that her bout of
hypovolemia was likely multifactorial and caused by her copious volume loss from the diarrhea and vomiting, from also her not being mindful of her food and fluid intake for the past few days prior to her presentation, and her ongoing Lasix use in
the setting of poor fluid intake. Patient stated that she be more mindful of monitoring her fluid intake moving forward so that similar episode of hypovolemia will never occur. Her creatinine returned to normal limits on 10/27/2024 with a value of
0.8. The patient believes that she is ready for discharge and would like to be discharged.
The patient has reached maximal benefit from this hospital admission and the patient is appropriate for discharge at the present time. There are no barriers that would impede the patient from being discharged from the hospital at the present time.
The patient should follow-up with their primary care provider within 1 week following discharge.
Discharge Plan
-
Patient Disposition: Home (Routine Discharge)
Discharge Diagnosis/Procedures: Prerenal acute kidney injury secondary to hypovolemia, volume loss secondary to diarrhea and vomiting, hyperlipidemia, essential hypertension, paroxysmal atrial fibrillation, heart failure with preserved ejection
fraction
Condition: Good
Diet: No restrictions
Activity: No restrictions
Driving Restrictions: As prior to admission
Bathing Restrictions: None
Referrals:
Len Salazar MD [Family Provider, Internal Medicine] - in less than 1 week
Prescriptions:
Continued
guar gum Packet
1 tbsp PO DAILY
calcium carbonate 650 mg calcium (1,625 mg) Tablet
650 mg PO DAILY
multivitamin Tablet
1 tab PO DAILY Qty: 0 0RF
furosemide [Lasix] 40 mg Tablet
40 mg PO BID Qty: 0 0RF
cetirizine [Zyrtec] 10 mg Tablet
10 mg PO DAILY Qty: 0 0RF
cyanocobalamin (vitamin B-12) 1,000 mcg Tablet
1,000 mcg PO DAILY Qty: 0 0RF
zinc sulfate 50 mg zinc (220 mg) Tablet
50 mg PO QPM Qty: 0 0RF
ascorbic acid (vitamin C) [Vitamin C] 500 mg Tablet
1,000 mg PO DAILY Qty: 0 0RF
metoprolol tartrate 50 mg Tablet
75 mg PO BID Qty: 0 0RF
lisinopril 2.5 mg Tablet
2.5 mg PO DAILY Qty: 0 0RF
rosuvastatin [Crestor] 10 mg Tablet
10 mg PO DAILY Qty: 0 0RF
cholecalciferol (vitamin D3) 125 mcg (5,000 unit) Tablet
125 mcg PO DAILY Qty: 0 0RF
Prolia 60 mg/mL Syringe
60 mg SC [id number] Qty: 0 0RF
Eliquis 2.5 mg Tablet
2.5 mg PO BID Qty: 0 0RF
Repatha SureClick 140 mg/mL Pen Injector
140 mg SC Q2W Qty: 0 0RF
Rx Instructions:
and mo
Probiotic 100 billion cell Capsule
1 cap PO DAILY Qty: 0 0RF
turmeric 400 mg Capsule
1,500 mg PO BID Qty: 0 0RF
Discharge Orders:
Discharge Patient (As Directed); Ordered 10/27/24
Ordered By: Veronica Galarza
Discharge Date and Time
Print Language: TURKISH
--- NOTE | 2024-10-27 14:46 | CM ---
Patient requested [facility] and CM will send referral via all scripts. IMM completed and signed form placed on chart. CM will continue to follow for discharge planning needs.
Plan; home with [facility].
== END 2024-10-27 15:24 | disposition home health service (06) | DRG 641 ==
LOC: 4 EAST ACU 08:35
PROVIDERS: Emergency Medicine; ADMITTING PHYSICIAN Internal Medicine; ATTENDING PHYSICIAN Internal Medicine; EMERGENCY PHYSICIAN Emergency Medicine; FAMILY PHYSICIAN Internal Medicine
DX: E86.1 Hypovolemia (principal); N17.9 Acute kidney failure, unspecified; I50.32 Chronic diastolic (congestive) heart failure; I11.0 Hypertensive heart disease with heart failure; E78.5 Hyperlipidemia, unspecified; I48.0 Paroxysmal atrial fibrillation; A08.4 Viral intestinal infection, unspecified; Z95.1 Presence of aortocoronary bypass graft; I25.10 Atherosclerotic heart disease of native coronary artery without angina pectoris; D69.6 Thrombocytopenia, unspecified; E11.9 Type 2 diabetes mellitus without complications; I25.2 Old myocardial infarction; I87.2 Venous insufficiency (chronic) (peripheral); Z79.01 Long term (current) use of anticoagulants
CPT/HCPCS: 51798; 80048; 80053; 83690; 83735; 84100; 85027; 96360; 96361; 97162; 97165; 99285

== ENCOUNTER → 2025-02-03 09:13 | Outpatient (REF) | payer OTHER, SELFPAY ==
[2025-02-03 10:17] LABS: Hematocrit 40.8 % (37.0-47.0); Hemoglobin 12.4 g/dL (12.0-16.0); Mean Corp Hgb Conc. 30.4 g/dL (33.0-37.0); Mean Corpuscular Volume 92.7 fL (81.0-99.0); Nucleated Red Blood Cells % 0 %; Platelet Count 171 10^3/uL (130-400); Red Cell Dist. Width 15.0 % (11.5-14.5)
[2025-02-03 10:37] LABS: ALT (SGPT) 51 U/L (0-35); AST (SGOT) 52 U/L (14-36); Albumin 4.1 g/dl (3.5-5.0); Alkaline Phosphatase 73 U/L (38-126); Blood Urea Nitrogen 21 mg/dl (7-17); Calcium 10.0 mg/dl (8.4-10.2); Carbon Dioxide 32 mmol/L (22-30); Chloride 105 mmol/L (98-107); Glucose 113 mg/dl (70-99); Potassium 4.2 mmol/L (3.5-5.1); Sodium 141 mmol/L (135-145); Total Protein 7.0 g/dl (6.3-8.2); eGFR > 60.00
== END ==
LOC: REG 09:13
PROVIDERS: ATTENDING PHYSICIAN Internal Medicine Rheumatology; FAMILY PHYSICIAN Internal Medicine
DX: I51.9 Heart disease, unspecified (principal); M19.071 Primary osteoarthritis, right ankle and foot; M25.511 Pain in right shoulder; M81.0 Age-related osteoporosis without current pathological fracture; S63.10 Unspecified subluxation and dislocation of thumb; Z51.81 Encounter for therapeutic drug level monitoring
CPT/HCPCS: 36415; 80053; 85025

== ENCOUNTER → 2025-02-26 13:54 | Outpatient (REF) | payer OTHER, SELFPAY | LOC: WDC 13:54 | PROVIDERS: ATTENDING PHYSICIAN Obstetrics & Gynecology; FAMILY PHYSICIAN Internal Medicine | DX: Z12.31 Encounter for screening mammogram for malignant neoplasm of breast (principal) | CPT/HCPCS: 77063; 77067 ==

== ENCOUNTER 2025-03-13 22:50 | Emergency (ER) | payer OTHER, SELFPAY ==
[2025-03-13 22:54] VITALS: BP 169/86
[2025-03-13 23:28] VITALS: BMI 23.6
--- NOTE | 2025-03-14 01:53 | ED.MUSCINJ ---
HPI-Injury
General
Chief Complaint: Fall
Source: patient
Exam Limitations: none
Time Seen by Provider: 03/14/25 00:00
Nursing documentation reviewed up to this point in time: agreed with
History of Present Illness-Injury
Initial Injury comments:
Note:
CHIEF COMPLAINT(S)
Fall resulting in right knee pain and concern for head injury given the use of anticoagulation medication.
HISTORY OF PRESENT ILLNESS
The patient is an 84-year-old female who presented following a fall in which her right knee was injured. The patient described that while placing an item on a chair, she turned, and her foot went underneath, causing her to fall and hit her knee.
Although she was able to walk afterward, stating �Yep, I got off my wall, that came here,� she reports significant pain upon touching the knee. She indicated the pain was 'below the patella,' suggesting a possible tibia injury rather than patellar.
She mentioned feeling 'like little needles' at the point of greatest pain. Additionally, the patient hit her head during the fall. However, she did not lose consciousness and has been on apixaban (Eliquis), which raises concern for potential
intracranial injury, hence the plan to scan her head. The patient did not report any additional injuries.
MEDICATIONS
The patient is currently on apixaban (Eliquis), an anticoagulant medication.
PHYSICAL EXAM
General: Alert, no acute distress.
Skin: Warm, dry.
Head: Normocephalic, atraumatic.
Neck: Supple, trachea midline.
Eyes, Ears, Nose, Mouth, and Throat: Oral mucosa moist.
Cardiovascular: Normal peripheral perfusion, No edema.
Respiratory: Respirations are non-labored.
Gastrointestinal: Abdomen nondistended.
Back: Normal range of motion, Normal alignment.
Musculoskeletal: Right knee tenderness below the patella, possible fracture noted.
Neurological: Alert and oriented to person, place, time, and situation, No focal neurological deficit observed.
Psychiatric: Cooperative, appropriate mood & affect.
PLAN
1. Initiate a CT scan of the head to assess for any intracranial injury due to the fall and anticoagulation use.
2. Conduct an X-ray of the right knee to evaluate for possible fracture, particularly in the area below the patella.
3. Continue monitoring for any signs of increased intracranial pressure or additional injury.
DIFFERENTIAL DIAGNOSIS
The Differential Diagnosis includes, in no particular order and is not limited to:
1. Fracture of the tibia
2. Patellar fracture
3. Intracranial hemorrhage
4. Knee contusion
5. Ligamentous injury
6. Meniscus injury
7. Osteoarthritis exacerbation
8. Subdural hematoma
9. Muscular strain
10. Synovitis
Disposition:
SUMMARY OF ENCOUNTER
An 84-year-old female presented to the emergency department following a fall, during which she injured her right knee and hit her head. The patient was evaluated due to her anticoagulation medication use, which raised concerns about a potential
intracranial injury. A CT scan of the head and right knee was performed to ensure no acute abnormalities. Both imaging studies were negative. The patient was ambulatory with minor knee tenderness below the patella and slight joint swelling, but no
suspicion of a tibial plateau fracture. The patient displayed full range of motion in the knee and had no hip pain with a normal hip rolling test.
DISPOSITION
Discharge.
ASSESSMENT
Knee contusion secondary to fall, with no fracture or intracranial injury detected on imaging.
PLAN
The patient will be discharged home with instructions to monitor for any changes in symptoms and follow up with her primary care provider if necessary.
INDEPENDENT REVIEW OF LABS AND INTERPRETATION OF TESTS
- My independent interpretation of the CT head is that there are no acute abnormalities.
- My independent interpretation of the CT of the right knee is that there are no acute abnormalities and no suspicion of a tibial plateau fracture.
MEDICATION RECONCILIATION
- The patient is currently on apixaban (Eliquis).
MEDICAL DECISION MAKING
- Number and Complexity of Problems Addressed: Chronic conditions affecting care include the use of anticoagulation medication. DDx list includes fracture of the tibia, patellar fracture, intracranial hemorrhage, knee contusion, ligamentous injury,
meniscus injury, osteoarthritis exacerbation, subdural hematoma, muscular strain, and synovitis.
- Data:
Category 1: CT of the head and CT of the right knee were ordered to evaluate the patient for possible fracture and intracranial injury due to the nature of the fall and anticoagulation therapy.
- Risk: Consideration of Admission/Observation: Escalation of care including admission/observation was considered given the complexity and risk of the patients presenting complaint, exam findings, and their underlying comorbidities. However,
ultimately I feel the patient is safe for outpatient management with close follow up. Reasoning: Work-up reassuring, does not reveal any acute life/organ threatening processes, patients symptoms well controlled upon reevaluation, reexamination is
reassuring, vitals are stable, patient agreeable with discharge, reliable for follow-up.
DIAGNOSIS
- Knee contusion (S80.0XXA)
- Fall on same level from slipping, tripping and stumbling without subsequent striking against object, initial encounter (W01.0XXA)
Phy Exam
Physical Exam
Physical Exam:
.
Injury Course
Orders/Labs/Results
Orders:
Orders
03/13/25 23:01
Knee, Right 4 or More Views [CR Knee- Right 4 Or More View*] Urgent
Comment:
Reason For Exam: FELL, PAIN TO R KNEE
03/14/25 00:27
CT Head W/o Iv Contrast Urgent
Comment:
Reason For Exam: fall on eliquis
Lower Ext Right wo Contrast CT [CT Lower Ext W/o Iv Cont Rt] Urgent
Comment:
Reason For Exam: distal knee pain after fall
03/14/25 01:53
Ambulate Patient-Treatment ONCE
*Pulse Oximetry
SaO2: 98
Oxygen Mode of Delivery: Room air
Patient hypoxic: no
*Critical Care Note
Total Time (30-74mins, 75-104mins- exclusive of procedures): Not Applicable
Update Note
Update Note:
NAME: CARY PALMER
DATE OF EXAM: 03/14/2025
Patient No: [id number]
Physician: MIKE^Sandy
Date of : 1940
Past Medical History (entered by Technologist):
Reason For Exam (entered by Technologist):
Other Notes (entered by Technologist): fall hit head priors
Additional Information (per Vision Radiologist):
CT HEAD, CT right lower extremity
IMPRESSION:
HEAD:
No acute hemorrhage, herniation, or hydrocephalus.
No calvarial fracture.
The visualized paranasal sinuses and mastoid air cells are clear.
R LOW EXT:
No acute fracture or traumatic malalignment.
No significant soft tissue abnormality.
Case finalized on 03/14/25 01:00 EST
Pako Olivera M.D.
This report has been electronically signed and verified by the Radiologist whose name is printed above.
ED Attending Note
-
Portions of this chart may have been created with voice recognition software.� Occasional wrong word or��sound alike� substitutions may have occurred due to the inherent limitations of voice recognition software.
Discharge Plan
Departure
Patient Disposition: Home (Routine Discharge)
Date of Disposition: 03/14/25
Time of Disposition: 02:25
Patient with high blood pressure during this ER visit?: Yes
Discharge Problem:
Fall, Head injury, acute, Contusion of knee
Instructions: Head Injury in Adults (DC), Contusion (DC), Preventing falls in adults, BLOOD PRESSURE
Prescriptions:
No Action
guar gum Packet
1 tbsp PO DAILY
calcium carbonate 650 mg calcium (1,625 mg) Tablet
650 mg PO DAILY
multivitamin Tablet
1 tab PO DAILY Qty: 0 0RF
furosemide [Lasix] 40 mg Tablet
40 mg PO BID Qty: 0 0RF
cetirizine [Zyrtec] 10 mg Tablet
10 mg PO DAILY Qty: 0 0RF
cyanocobalamin (vitamin B-12) 1,000 mcg Tablet
1,000 mcg PO DAILY Qty: 0 0RF
zinc sulfate 50 mg zinc (220 mg) Tablet
50 mg PO QPM Qty: 0 0RF
ascorbic acid (vitamin C) [Vitamin C] 500 mg Tablet
1,000 mg PO DAILY Qty: 0 0RF
metoprolol tartrate 50 mg Tablet
75 mg PO BID Qty: 0 0RF
lisinopril 2.5 mg Tablet
2.5 mg PO DAILY Qty: 0 0RF
rosuvastatin [Crestor] 10 mg Tablet
10 mg PO DAILY Qty: 0 0RF
cholecalciferol (vitamin D3) 125 mcg (5,000 unit) Tablet
125 mcg PO DAILY Qty: 0 0RF
Prolia 60 mg/mL Syringe
60 mg SC [id number] Qty: 0 0RF
Eliquis 2.5 mg Tablet
2.5 mg PO BID Qty: 0 0RF
Repatha SureClick 140 mg/mL Pen Injector
140 mg SC Q2W Qty: 0 0RF
Rx Instructions:
and mo
Probiotic 100 billion cell Capsule
1 cap PO DAILY Qty: 0 0RF
turmeric 400 mg Capsule
1,500 mg PO BID Qty: 0 0RF
Referrals:
Len Salazar MD [Family Provider, Internal Medicine]
Activity Restrictions/Additional Instructions:
Thank You for choosing [facility].
It was a pleasure meeting you and taking part in your care. We hope for your continued healing and wellness.
Please read discharge instructions in their entirety. However, they are for general education and may not describe your exact diagnosis at discharge. Information on your ER visit and medical conditions were discussed with you along with appropriate
follow up information...
If indicated, please take your medications as instructed and indicated on discharge paperwork.
Please schedule a follow up appointment as directed. Call to schedule an appointment
Please return to the emergency department with ANY change in, persisting, or worsening of symptoms. If any of your symptoms do not improve, or persist, or become more severe within 6-12 hours, please return to the emergency department for further
care.
Please return to the emergency department if you develop a headache, neck pain/stiffness, fever greater than 100.4F, chest pain, shortness of breath, persistent nausea, vomiting, slurred speech, difficulty walking, numbness/tingling, weakness, signs
of infection or any other symptoms that are worrisome to you.
If you have any questions or concerns please do not hesitate to call the Hospital at .
Interventions
Interventions:
*Risk Screen - Suicide Last Done: 03/13/25 22:54
*General Assessment Last Done: 03/13/25 23:25
*Neglect/Abuse Screening Last Done: 03/13/25 23:25
*ED COVID-19 Vaccine History Last Done: 03/13/25 23:25
*ED Influenza Vaccine History Last Done: 03/13/25 23:25
[facility] Risk Assessment Tool Last Done: 03/13/25 23:28
*Nursing Disposition Last Done: 03/14/25 02:53
ED-Musculoskeletal Assessment Last Done: 03/13/25 23:27
ED- Neurological Assessment Last Done: 03/13/25 23:27
ED-Skin Assessment Last Done: 03/13/25 23:27
Discharge Date and Time
Discharge Date/Time: 03/14/25 02:55
Print Language: EQUATORIAL GUINEAN
== END 2025-03-14 02:55 | disposition home or self-care (01) ==
LOC: EMR 22:50
PROVIDERS: EMERGENCY PHYSICIAN Student in an Organized Health Care Education/Training Program; FAMILY PHYSICIAN Internal Medicine
DX: S09.90XA Unspecified injury of head, initial encounter (principal); S80.01XA Contusion of right knee, initial encounter; W01.10XA Fall on same level from slipping, tripping and stumbling with subsequent striking against unspecified object, initial encounter; R03.0 Elevated blood-pressure reading, without diagnosis of hypertension; Z79.01 Long term (current) use of anticoagulants
CPT/HCPCS: 99284; 70450; 73564; 73700

== ENCOUNTER → 2025-04-08 07:58 | Outpatient (REF) | payer OTHER, SELFPAY | LOC: RAD 07:58 | PROVIDERS: ATTENDING PHYSICIAN Obstetrics & Gynecology; REFERRING PHYSICIAN Internal Medicine | DX: Z78.0 Asymptomatic menopausal state (principal) | CPT/HCPCS: 77080 ==